=== PATIENT | female | born 1990 | race Two or more races ===

== ENCOUNTER 2025-07-02 22:32 | Inpatient (IN) | payer MEDICARE, MEDICAID ==
[~2025-07-02] VITALS: Ht 162.6 cm; Wt 156.7 kg
[2025-07-03 01:25] VITALS: BP 132/92; PULSE 73; RESP 18; TEMP 98.5; O2SAT 99
[2025-07-03] MEDS: ZOLPIDEM TARTRATE 10 MG TABLET PO PRN (01:32)
[2025-07-03] MEDS ORDERED: INFLUENZA VIRUS VACCINE TVS (6MO+) 2025-26/PF 45 MCG/0.5 ML SYRINGE IM. ONE (03:00)
[2025-07-03 08:28] LABS: PLATELET COUNT (AUTO) 194 K/uL (150-450); RED BLOOD CELL COUNT(AUTO) 4.48 MIL/uL (4.00-5.20); RED CELL DISTRIBUTION WIDTH 14.0 % (11.5-14.5); WHITE BLOOD COUNT (AUTO) 7.1 K/uL (4.5-11.0)
[2025-07-03 08:56] VITALS: BP 142/84; PULSE 66; RESP 19; TEMP 98.3; O2SAT 94
[2025-07-03 09:00] LABS: ASPARTATE AMINOTRANSFERASE 30 U/L (15-37); CALCIUM, TOTAL 8.1 mg/dL (8.8-10.5); CHOL/HDL RATIO 3.0 (3.9-5.7); CREATININE 0.54 mg/dL (0.60-1.30); GLOMERULAR FILTR. RATE CALC > 60 mL/min (>60); GLUCOSE,RANDOM 90 mg/dL (70-110); LDL CHOL (CALC.) 63 mg/dL (0-130); SODIUM SERUM 143 mmol/L (136-145); TOTAL PROTEIN, SERUM 5.9 g/dL (6.4-8.2); UREA NITROGEN, BLOOD 12 mg/dL (7-18)
[2025-07-03] MEDS ORDERED: ALBUTEROL SULFATE HFA 90 MCG/PUFF 8 GM INHALER IH PRN (10:00)
[2025-07-03] MEDS ORDERED: MAG HYDROX/ALUMINUM HYD/SIMETH ES 30 ML SUSPENSION UDCUP PO PRN (10:00)
[2025-07-03] MEDS ORDERED: DOCUSATE SODIUM 100 MG CAPSULE PO PRN (10:00)
[2025-07-03] MEDS ORDERED: PETROLATUM,WHITE 28 GM JELLY TP PRN (10:00)
[2025-07-03] MEDS ORDERED: NICOTINE 14 MG/24 HOUR PATCH TD PRN (10:00)
[2025-07-03] MEDS ORDERED: LOPERAMIDE HCL 2 MG CAPSULE PO PRN (10:00)
[2025-07-03] MEDS ORDERED: ACETAMINOPHEN 325 MG TABLET PO PRN (10:00)
[2025-07-03] MEDS ORDERED: ONDANSETRON 4 MG TABLET PO PRN (10:00)
[2025-07-03] MEDS ORDERED: MAGNESIUM HYDROXIDE SUSPENSION 30 ML UDCUP PO PRN (10:00)
[2025-07-03] MEDS ORDERED: GuaiFENesin/D-METHORPHAN [SUGAR-FREE] 200-20MG/10 ML SYRUP UDCUP PO PRN (10:00)
[2025-07-03] MEDS ORDERED: IBUPROFEN 400 MG TABLET PO PRN (10:00)
[2025-07-03] MEDS: NICOTINE POLACRILEX 2 MG LOZENGE PO PRN ×2 (11:24→16:49)
[2025-07-03 20:09] VITALS: BP 125/60; PULSE 65; RESP 18; TEMP 98; O2SAT 100
[2025-07-04 08:21] VITALS: BP 134/83; PULSE 69; RESP 15; TEMP 98.2; O2SAT 98
[2025-07-04 09:56] LABS: CHOL/HDL RATIO 3.1 (3.9-5.7); LDL CHOL (CALC.) 70.0 mg/dL (0-130)
[2025-07-04 20:17] VITALS: BP 127/79; PULSE 67; RESP 17; TEMP 98.4; O2SAT 99
[2025-07-05 08:23] VITALS: BP 115/74; PULSE 75; RESP 18; TEMP 97.6; O2SAT 99
[2025-07-05] MEDS ORDERED: QUET25TA PO (09:05)
[2025-07-05] MEDS ORDERED: QUET100T PO (09:06)
== END 2025-07-05 16:34 | disposition home or self-care (01) | DRG 885 ==
LOC: B2X 07-03 00:14
PROVIDERS: ADMIT Psychiatry & Neurology Psychiatry; ATTEND Psychiatry & Neurology Psychiatry
PROC: GZ58ZZZ Individual Psychotherapy, Cognitive-Behavioral (ICD-10-PCS; 2025-07-03)
PROC: GZ56ZZZ Individual Psychotherapy, Supportive (ICD-10-PCS; 2025-07-03)
PROC: GZHZZZZ Group Psychotherapy (ICD-10-PCS; principal; 2025-07-05)
DX: F33.9 Major depressive disorder, recurrent, unspecified (principal); F29 Unspecified psychosis not due to a substance or known physiological condition; I10 Essential (primary) hypertension; F10.10 Alcohol abuse, uncomplicated; F19.10 Other psychoactive substance abuse, uncomplicated; G47.00 Insomnia, unspecified
CPT/HCPCS: 80053; 80061; 83036; 84439; 84443; 84703; 85025; 90686